=== PATIENT | male | born 1940 | race Caucasian/White ===

== ENCOUNTER 2017-12-26 13:16 | Inpatient (IN) | payer BC, OTHER ==
[~2017-12-26] VITALS: Ht 167.6 cm; Wt 76.7 kg
[2017-12-26 13:23] VITALS: BP_SYST 163
[2017-12-26] MEDS ORDERED: DIGO250T78 PO (14:43)
[2017-12-26] MEDS ORDERED: TOPXL100 PO (14:43)
[2017-12-26] MEDS ORDERED: ONDA4TAB5 PO (14:43)
[2017-12-26] MEDS ORDERED: FLUT1AER INH (14:43)
[2017-12-26] MEDS ORDERED: PRO40 PO (14:43)
[2017-12-26] MEDS ORDERED: URSO300C24 PO (14:43)
[2017-12-26] MEDS ORDERED: ACYC400T PO (14:43)
[2017-12-26] MEDS ORDERED: VENE100T PO (14:43)
[2017-12-26] MEDS ORDERED: LEVO100T PO (14:43)
[2017-12-26] MEDS ORDERED: ROSU40TA PO (14:43)
[2017-12-26] MEDS ORDERED: MORPHINE SULFATE 10 MG/ML VIAL IVP PRN (15:00)
[2017-12-26 15:19] VITALS: BP_SYST 140
[2017-12-26 15:45] LABS: HEMATOCRIT 32.8 % (36-54); HEMOGLOBIN 11.1 g/dL (14.0-18.0); MEAN CORPUSCULAR HEMOGLOBIN 37 pg (27-31); MEAN CORPUSCULAR HGB CONC 34 % (32-36); MEAN CORPUSCULAR VOLUME 110 fL (79.0-98.0); PLATELET COUNT (AUTO) 74 K/uL (130-430); RED BLOOD CELL COUNT(AUTO) 2.99 MIL/uL (4.2-6.2); RED CELL DISTRIBUTION WIDTH 18.6 % (9.0-15.0)
[2017-12-26 15:49] LABS: ANION GAP 8 (5-15); CALCIUM 8.9 mg/dL (8.4-11.0); CHLORIDE 99 mmol/L (98-107); CREATININE 1.13 mg/dL (0.55-1.30); GLUCOSE 114 mg/dL (70-99); POTASSIUM 4.1 mmol/L (3.5-5.1); SODIUM SERUM 135 mmol/L (136-145); UREA NITROGEN, BLOOD 22 mg/dL (8-21)
[2017-12-26 15:55] LABS: ALANINE AMINOTRANSFERASE 29 U/L (12-78); ALBUMIN 2.9 g/dL (3.4-4.8); ASPARTATE AMINOTRANSFERASE 31 U/L (10-37); TOTAL BILIRUBIN 1.8 mg/dL (0.0-1.0)
[2017-12-26] MEDS ORDERED: DEXTROSE 50%-WATER 50 ML DISP.SYRIN IVP PRN ×2 (16:15)
[2017-12-26] MEDS ORDERED: GLUCOSE 15 GM GEL (in 37.5 GM TUBE) PO PRN ×2 (16:15)
[2017-12-26 16:33] LABS: BAND % (MANUAL) 5 % (0-6); BASOPHILS % (MANUAL) 0 % (0-2); EOSINOPHILS % (MANUAL) 2 % (0-7); LYMPHOCYTES % (MANUAL) 13 % (20-46); MONOCYTES % (MANUAL) 2 % (0-11)
[2017-12-26] MEDS ORDERED: COMMUNICATION ORDER XX ONE (17:00)
[2017-12-26] MEDS ORDERED: ONDANSETRON 4 MG ODT TAB PO PRN (17:00)
[2017-12-26 20:30] VITALS: BP_SYST 148
[2017-12-26] MEDS ORDERED: METOPROLOL SUCCINATE 50 MG TAB.SR.24H (TOPROL XL) PO SCH (21:00)
[2017-12-26] MEDS ORDERED: ROSUVASTATIN CALCIUM 5 MG/TAB (CRESTOR) PO SCH (21:00)
[2017-12-26] MEDS ORDERED: ATORVASTATIN 20 MG TABLET PO ONE (21:45)
[2017-12-26] MEDS ORDERED: METOPROLOL SUCCINATE 50 MG TAB.SR.24H (TOPROL XL) PO ONE (21:45)
[2017-12-26] MEDS: ACYCLOVIR 400 MG TABLET PO SCH (22:01)
[2017-12-27] MEDS: HYDROcodone/ACETAMIN 10-325 MG TAB PO PRN ×2 (00:17→11:14)
[2017-12-27 05:32] VITALS: BP_SYST 133
[2017-12-27] MEDS: LEVOTHYROXINE SODIUM 0.1 MG TABLET PO SCH (06:39)
[2017-12-27 08:00] VITALS: BP_SYST 125
[2017-12-27] MEDS: DOCUSATE SODIUM 100 MG CAPSULE PO SCH ×2 (08:17→20:44)
[2017-12-27] MEDS ORDERED: DOCUSATE SODIUM 100 MG CAPSULE PO ONE ×2 (08:30→20:30)
[2017-12-27] MEDS ORDERED: PANTOPRAZOLE SODIUM 40 MG TAB PO SCH (09:00)
[2017-12-27] MEDS ORDERED: ATORVASTATIN 20 MG TABLET PO SCH ×2 (09:00→21:00)
[2017-12-27] MEDS: VENETOCLAX 100 MG PO SCH ×2 (09:00→21:00)
[2017-12-27] MEDS ORDERED: FLUTICASONE/VILANTEROL 1 EACH BLST.W.DEV INH SCH (09:00)
[2017-12-27] MEDS ORDERED: METOPROLOL SUCCINATE 50 MG TAB.SR.24H (TOPROL XL) PO SCH (09:00)
[2017-12-27] MEDS ORDERED: COMMUNICATION ORDER XX ONE (09:30)
[2017-12-27] MEDS: ACYCLOVIR 400 MG TABLET PO SCH ×2 (10:06→20:44)
[2017-12-27 12:09] VITALS: BP_SYST 108
[2017-12-27] MEDS: DIGOXIN 0.25 MG TABLET PO SCH (12:09)
[2017-12-27 16:57] VITALS: BP_SYST 119
[2017-12-27 20:00] VITALS: BP_SYST 124
[2017-12-27] MEDS ORDERED: METOPROLOL SUCCINATE 50 MG TAB.SR.24H (TOPROL XL) PO ONE (20:30)
[2017-12-27] MEDS ORDERED: FLUTICASONE/VILANTEROL 1 EACH BLST.W.DEV INH ONE (20:30)
[2017-12-27] MEDS: INSULIN REGULAR, HUMAN 100 UNITS/ML, 10 ML VIAL (novoLIN R) SUBCUT PRN (21:01)
[2017-12-27] MEDS ORDERED: CALCIUM CARBONATE 500 MG/ TAB.CHEW PO PRN (22:00)
[2017-12-27 23:15] VITALS: BP_SYST 127
[2017-12-28] MEDS: LEVOTHYROXINE SODIUM 0.1 MG TABLET PO SCH (06:13)
[2017-12-28] MEDS: PANTOPRAZOLE SODIUM 40 MG TAB PO SCH ×2 (06:14→09:00)
[2017-12-28 08:05] VITALS: BP_SYST 130
[2017-12-28] MEDS: VENETOCLAX 100 MG PO SCH ×3 (09:00→21:00)
[2017-12-28] MEDS ORDERED: METOPROLOL SUCCINATE 50 MG TAB.SR.24H (TOPROL XL) PO SCH ×2 (09:00→11:00)
[2017-12-28] MEDS: DIGOXIN 0.25 MG TABLET PO SCH ×2 (09:00→12:58)
[2017-12-28] MEDS ORDERED: FLUTICASONE/VILANTEROL 1 EACH BLST.W.DEV INH SCH (09:00)
[2017-12-28] MEDS: DOCUSATE SODIUM 100 MG CAPSULE PO SCH ×2 (10:04→21:00)
[2017-12-28] MEDS: ACYCLOVIR 400 MG TABLET PO SCH ×2 (10:05→21:04)
[2017-12-28] MEDS: HYDROcodone/ACETAMIN 10-325 MG TAB PO PRN ×2 (10:05→22:59)
[2017-12-28] MEDS: METOPROLOL SUCCINATE 50 MG TAB.SR.24H (TOPROL XL) PO SCH ×2 (11:12→22:59)
[2017-12-28 11:18] VITALS: BP_SYST 129
[2017-12-28] MEDS: FLUTICASONE/VILANTEROL 1 EACH BLST.W.DEV INH SCH (14:06)
[2017-12-28 18:18] VITALS: BP_SYST 125
[2017-12-28] MEDS: BISACODYL 10 MG/SUPPOSITORY RC ONE ×2 (18:44→21:14)
[2017-12-28 20:00] VITALS: BP_SYST 115
[2017-12-28] MEDS: ATORVASTATIN 20 MG TABLET PO SCH (21:04)
[2017-12-28] MEDS: INSULIN REGULAR, HUMAN 100 UNITS/ML, 10 ML VIAL (novoLIN R) SUBCUT PRN (21:10)
[2017-12-28 23:30] VITALS: BP_SYST 136
[2017-12-29] MEDS: LEVOTHYROXINE SODIUM 0.1 MG TABLET PO SCH (06:07)
[2017-12-29] MEDS: PANTOPRAZOLE SODIUM 40 MG TAB PO SCH (06:20)
[2017-12-29 08:00] VITALS: BP_SYST 124
[2017-12-29] MEDS: DOCUSATE SODIUM 100 MG CAPSULE PO SCH ×2 (08:40→20:52)
[2017-12-29] MEDS: ACYCLOVIR 400 MG TABLET PO SCH ×2 (08:40→20:53)
[2017-12-29] MEDS ORDERED: COMMUNICATION ORDER XX ONE (08:45)
[2017-12-29] MEDS: HYDROcodone/ACETAMIN 10-325 MG TAB PO PRN ×2 (10:30→20:01)
[2017-12-29] MEDS: METOPROLOL SUCCINATE 50 MG TAB.SR.24H (TOPROL XL) PO SCH ×2 (11:14→23:05)
[2017-12-29] MEDS: INSULIN REGULAR, HUMAN 100 UNITS/ML, 10 ML VIAL (novoLIN R) SUBCUT PRN (11:51)
[2017-12-29 12:10] VITALS: BP_SYST 122
[2017-12-29] MEDS: NACL 0.9% 1,000 ML IV SCH (12:48)
[2017-12-29] MEDS: DIGOXIN 0.25 MG TABLET PO SCH (12:48)
[2017-12-29 13:11] LABS: BASOPHILS % (AUTO) 0.6 % (0.0-2.0); EOSINOPHILS # (AUTO) 0.1 K/uL (0.0-0.4); EOSINOPHILS % (AUTO) 3.4 % (0.0-4.0); HEMATOCRIT 29.6 % (36-54); HEMOGLOBIN 9.8 g/dL (14.0-18.0); LYMPHOCYTES # (AUTO) 0.6 K/uL (1.0-5.5); LYMPHOCYTES % (AUTO) 17.6 % (20.5-51.5); MEAN CORPUSCULAR HEMOGLOBIN 36 pg (27-31); MEAN CORPUSCULAR HGB CONC 33 % (32-36); MEAN CORPUSCULAR VOLUME 109 fL (79.0-98.0); MONOCYTES # (AUTO) 0.1 K/uL (0.0-1.0); NEUTROPHILS # (AUTO) 2.6 K/uL (1.8-7.7); NEUTROPHILS % (AUTO) 76.4 % (40.0-70.0); RED BLOOD CELL COUNT(AUTO) 2.73 MIL/uL (4.2-6.2); RED CELL DISTRIBUTION WIDTH 17.7 % (9.0-15.0)
[2017-12-29 13:14] LABS: PLATELET COUNT (AUTO) 38 K/uL (130-430)
[2017-12-29 14:09] LABS: WHITE BLOOD COUNT (AUTO) 3.4 K/uL (4.8-10.8)
[2017-12-29] MEDS: FLUTICASONE/VILANTEROL 1 EACH BLST.W.DEV INH SCH (14:15)
[2017-12-29 16:08] VITALS: BP_SYST 115
[2017-12-29] MEDS: PATIENT'S OWN TABLET PO SCH (16:14)
[2017-12-29 20:00] VITALS: BP_SYST 109
[2017-12-29] MEDS: ATORVASTATIN 20 MG TABLET PO SCH (20:53)
[2017-12-30 00:32] VITALS: BP_SYST 125
[2017-12-30] MEDS: LEVOTHYROXINE SODIUM 0.1 MG TABLET PO SCH (06:11)
[2017-12-30] MEDS ORDERED: PANTOPRAZOLE SODIUM 40 MG TAB PO SCH ×2 (06:16→07:00)
[2017-12-30 08:00] VITALS: BP_SYST 136
[2017-12-30] MEDS: ACYCLOVIR 400 MG TABLET PO SCH (08:54)
[2017-12-30] MEDS: DOCUSATE SODIUM 100 MG CAPSULE PO SCH (09:00)
[2017-12-30] MEDS ORDERED: BISACODYL 5 MG TABLET.DR (DULCOLAX) PO ONE (09:00)
[2017-12-30] MEDS: METOPROLOL SUCCINATE 50 MG TAB.SR.24H (TOPROL XL) PO SCH (11:16)
[2017-12-30] MEDS: NACL 0.9% 1,000 ML IV SCH (12:00)
[2017-12-30 12:31] VITALS: BP_SYST 135
[2017-12-30] MEDS: DIGOXIN 0.25 MG TABLET PO SCH (13:00)
[2017-12-30] MEDS: FLUTICASONE/VILANTEROL 1 EACH BLST.W.DEV INH SCH (14:05)
[2017-12-30 16:00] VITALS: BP_SYST 136
[2017-12-30] MEDS: PATIENT'S OWN TABLET PO SCH (16:00)
[2017-12-30 16:35] VITALS: BP_SYST 136
[2017-12-30] MEDS: HYDROcodone/ACETAMIN 10-325 MG TAB PO PRN (19:53)
== END 2017-12-30 20:05 | DRG 552 ==
LOC: SED 13:16 → SMU 14:54
PROVIDERS: ADMIT Orthopaedic Surgery; ATTEND Orthopaedic Surgery
DX: S22.089A Unspecified fracture of T11-T12 vertebra, initial encounter for closed fracture (principal); S32.019A Unspecified fracture of first lumbar vertebra, initial encounter for closed fracture; S32.029A Unspecified fracture of second lumbar vertebra, initial encounter for closed fracture; C95.90 Leukemia, unspecified not having achieved remission; D64.9 Anemia, unspecified; K59.00 Constipation, unspecified; I48.91 Unspecified atrial fibrillation; I51.9 Heart disease, unspecified; E78.00 Pure hypercholesterolemia, unspecified; W18.30XA Fall on same level, unspecified, initial encounter; Y93.89 Activity, other specified; Y92.091 Bathroom in other non-institutional residence as the place of occurrence of the external cause; Y99.8 Other external cause status; Z95.5 Presence of coronary angioplasty implant and graft; Z88.2 Allergy status to sulfonamides; Z88.8 Allergy status to other drugs, medicaments and biological substances; Z79.899 Other long term (current) drug therapy; Z90.49 Acquired absence of other specified parts of digestive tract; Z92.21 Personal history of antineoplastic chemotherapy; Z83.42 Family history of familial hypercholesterolemia
CPT/HCPCS: 36415; 72131; 80053; 82962; 85007; 85025; 85027; 93005; 97110-GP; 97112-GP; 97116-GP; 97163; 97530-GP; 99285; J1815; J7030